=== PATIENT | female | born 1975 | race Caucasian/White ===

== ENCOUNTER 2016-07-30 11:43 | Emergency (ER) | payer OTHER ==
[2016-07-30 12:04] VITALS: BP 125/91
[2016-07-30] MEDS ORDERED: HYDROcodone/ACETAMIN 5-325 MG* 1 TAB PO ONE (12:09)
--- NOTE | 2016-07-30 12:15 | UC ---
Back Pain HPI - HPI Summary HPI Summary: fell on ice yesterday. Slipped going downhill, landed on lower lumbar area. Able to get herself back in house, but pain immediately and then worsened as time went on. Now pain to touch bilaterally lumbar muscles, midline lumbar spine. Pain radiates down right leg in back. No bruising or swelling that she has noted. No other injuries. Tylenol, Motrin, ice, heat not helping. 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 Negative: Swelling, Redness, Bruising, Fever, Weakness, Numbness, Abdominal Pain, Flank Pain, Bladder Incontinence, Bowel Incontinence, Weight Loss - Risk Factors AAA Risk Factors: Negative TAD Risk Factors: Negative Cauda Equina Risk Factors: Negative Epidural Abscess Risk Factors: Negative - Allergies/Home Medications Allergies/Adverse Reactions: Allergies Allergy/AdvReac Type Severity Reaction Status Date / Time Acetaminophen [From Percocet] Allergy Hives Verified 07/30/16 11:54 Morphine Allergy Hives Verified 07/30/16 11:54 Oxycodone [From Percocet] Allergy Hives Verified 07/30/16 11:54 PMH/Surg Hx/FS Hx/Imm Hx - Surgical History Surgical History: Yes Surgery Procedure, Year, and Place: kidney stone right side-2015 - Family History Known Family History: Positive: Hypertension - Social History Occupation: Employed Full-time Lives: With Family Alcohol Use: None Substance Use Type: None Smoking Status (MU): Never Smoked Tobacco Review of Systems Constitutional: Negative Skin: Negative Eyes: Negative ENT: Negative Respiratory: Negative Cardiovascular: Negative Gastrointestinal: Negative Genitourinary: Negative Motor: Negative Neurovascular: Negative Musculoskeletal: Arthralgia, Decreased ROM, Myalgia Neurological: Negative Psychological: Negative All Other Systems Reviewed And Are Negative: Yes Physical Exam Triage Information Reviewed: Yes Appearance: Well-Appearing, Well-Nourished, Pain Distress - looks very uncomfortable sitting stiffly in chair Vital Signs: Initial Vital Signs Temp 97.6 F 07/30/16 11:49 Pulse 72 07/30/16 11:49 Resp 16 07/30/16 11:49 BP 125/91 07/30/16 11:49 Pulse Ox 99 07/30/16 11:49 Vital Signs Reviewed: Yes Eye Exam: Normal Neck exam: Normal Respiratory Exam: Normal Cardiovascular Exam: Normal Musculoskeletal Exam: Other - diffuse lumbar tenderness to light touch, bone and muscle. Limited twisting and bending due to pain. Stiff gait, slow to get up off chair. Neurological Exam: Normal Psychological Exam: Normal Skin Exam: Normal Diagnostics - Laboratory Diagnostic Studies Completed/Ordered: xray lumbar spine: no acute injury Back Pain Course/Dx - Differential Dx/Diagnosis Differential Diagnosis/HQI/PQRI: Fracture, Herniated Disc, Strain Provider Diagnoses: low back contusion and strain Discharge - Discharge Plan Condition: Stable Disposition: HOME Prescriptions: Cyclobenzaprine TAB* [Flexeril TAB*] 10 mg PO TID PRN #30 tab PRN Reason: muscle spasm Hydrocodone-Acetaminophen [Hydrocodone/Acetaminophen 5-325 mg] 1 - 2 tab PO Q4HR PRN #20 tab MDD 6 tab PRN Reason: Pain Patient Education Materials: Low Back Strain (ED) Referrals: No Primary Care Phys,NOPCP [Primary Care Provider] -
--- NOTE | 2016-07-30 12:49 | RAD ---
INDICATION: Trauma, back pain. COMPARISON: There are no prior studies available for comparison. TECHNIQUE: 5 views of the lumbar spine were obtained including lateral, oblique, AP and a coned-down lateral view of the lumbar sacral junction. FINDINGS: The vertebra are in normal alignment. No fracture is seen. There is moderate disc space narrowing and endplate hypertrophic changes at the L5-S1 level. IMPRESSION: 1. NO EVIDENCE FOR FRACTURE. 2. MODERATE DEGENERATIVE DISC DISEASE AT THE L5-S1 LEVEL.
== END 2016-07-30 13:02 | disposition home or self-care (01) ==
LOC: UCCORT 11:43
DX: S30.0XXA Contusion of lower back and pelvis, initial encounter (principal); S39.012A Strain of muscle, fascia and tendon of lower back, initial encounter; W00.0XXA Fall on same level due to ice and snow, initial encounter; Y93.9 Activity, unspecified; Y92.828 Other wilderness area as the place of occurrence of the external cause; Z88.5 Allergy status to narcotic agent; Z88.6 Allergy status to analgesic agent; Z87.442 Personal history of urinary calculi
CPT/HCPCS: 72110; 99202; G0463

== ENCOUNTER 2017-06-15 15:54 | Emergency (ER) | payer OTHER ==
[2017-06-15] MEDS ORDERED: Ketorolac INJ* 60 MG/2 ML VIAL IM ONE (16:53)
[2017-06-15 17:49] VITALS: BP 154/100
--- NOTE | 2017-06-15 17:52 | UC ---
Headache HPI - HPI Summary HPI Summary: headaches x 3 days lightheaded, no cough , no chest congestion , no n/v , no fever, no chills - History Of Current Complaint Chief Complaint: UCGeneralIllness Stated Complaint: HEADACHE/DIZZY Time Seen by Provider: 06/15/17 16:49 Hx Obtained From: Patient Hx Last Menstrual Period: 05/29/17 Onset/Duration: Gradual Onset, Lasting Days - 3, Still Present Onset Of Symptoms: Gradual, Still Present Initially Headache Was: Severe Currently Pain Is: Severe Timing: Constant Character: Throbbing Location of Headache: Diffuse Aggravating Factor(s): Nothing Allevating Factor(s): Nothing Associated Signs And Symptoms: Negative: Dizziness, Seizure, Nausea, Vomiting, Sinus Pressure, Fever, Neck Pain, Neck Stiffness, Decreased LOC, Visual Changes - Allergies/Home Medications Allergies/Adverse Reactions: Allergies Allergy/AdvReac Type Severity Reaction Status Date / Time Acetaminophen [From Percocet] Allergy Hives Verified 06/15/17 16:15 Morphine Allergy Hives Verified 06/15/17 16:15 Oxycodone [From Percocet] Allergy Hives Verified 06/15/17 16:15 PMH/Surg Hx/FS Hx/Imm Hx Previously Healthy: Yes - Surgical History Surgical History: Yes Surgery Procedure, Year, and Place: kidney stone right side-2014 - Family History Known Family History: Positive: Hypertension - Social History Alcohol Use: None Substance Use Type: None Smoking Status (MU): Never Smoked Tobacco Review of Systems Constitutional: Negative Skin: Negative Eyes: Negative ENT: Negative Respiratory: Negative Cardiovascular: Negative Neurological: Headache, Weakness Is Patient Immunocompromised?: No All Other Systems Reviewed And Are Negative: Yes Physical Exam Triage Information Reviewed: Yes Appearance: Well-Nourished, Pain Distress Vital Signs: Initial Vital Signs Temp 97.1 F 06/15/17 16:10 Pulse 87 06/15/17 16:10 Resp 14 06/15/17 16:10 BP 157/100 06/15/17 16:10 Pulse Ox 99 06/15/17 16:10 Vital Signs Reviewed: Yes Eyes: Positive: Conjunctiva Clear ENT: Positive: Normal ENT inspection, Hearing grossly normal, Pharynx normal Neck exam: Normal Neck: Positive: Supple, Nontender, No Lymphadenopathy Respiratory: Positive: Chest non-tender, Lungs clear, Normal breath sounds Cardiovascular: Positive: RRR, No Murmur, Pulses Normal Abdominal Exam: Normal Musculoskeletal Exam: Normal Neurological: Positive: Alert, Muscle Tone Normal Skin Exam: Normal UC Physical Exam Vital Signs On Initial Exam: Initial Vitals Temp Pulse Resp BP Pulse Ox 97.1 F 87 14 157/100 99 06/15/17 16:10 06/15/17 16:10 06/15/17 16:10 06/15/17 16:10 06/15/17 16:10 - Neurological Exam Neurological: Normal, Sensory/Motor Intact, Alert, Oriented to Person Place, Time, CN Intact II-III, Reflexes Intact, Normal Gait, Speech Normal Headache Course/Dx - Course Course Of Treatment: high bp most likely due to current illness - Differential Dx/Diagnosis Provider Diagnoses: headache. viral illness. elevated bp Discharge - Discharge Plan Condition: Stable Disposition: HOME Prescriptions: Naproxen [Naproxen 500 mg] 500 mg PO BID #20 tab Patient Education Materials: Acute Headache (ED), Viral Syndrome (ED) Referrals: Douglas Joseph DO [Primary Care Provider] - 7 Days
== END 2017-06-15 17:49 | disposition home or self-care (01) ==
LOC: UCCORT 15:54
DX: B34.9 Viral infection, unspecified (principal); R51 Headache; R03.0 Elevated blood-pressure reading, without diagnosis of hypertension; Z88.6 Allergy status to analgesic agent; Z88.5 Allergy status to narcotic agent
CPT/HCPCS: 96372; 99212; G0463; J1885